=== PATIENT | female | born 1945 | race Caucasian/White ===

== ENCOUNTER 2025-02-12 09:44 | Day surgery (SDC) | payer MEDICARE, OTHER, SELFPAY ==
[2025-02-12] VITALS (12 sets, daily range): BP systolic 126–155; BP diastolic 61–108; BMI 25.5
[2025-02-12 10:55] LABS: Hematocrit 41.1 % (37.0-47.0); Hemoglobin 13.7 g/dL (12.0-16.0); Mean Corp Hgb Conc. 33.3 g/dL (33.0-37.0); Mean Corpuscular Hgb 30.4 pg (27.0-31.0); Mean Corpuscular Volume 91.1 fL (81.0-99.0); Mean Platelet Volume 9.6 fL (7.4-10.4); Platelet Count 328 10^3/uL (130-400); Red Blood Cell Count 4.51 10^6/uL (4.20-5.40); Red Cell Dist. Width 13.5 % (11.5-14.5); White Blood Cell Count 6.1 10^3/uL (4.8-10.8)
[2025-02-12 11:14] LABS: ALT (SGPT) 12 U/L (0-35); AST (SGOT) 16 U/L (14-36); Albumin 4.3 g/dl (3.5-5.0); Alkaline Phosphatase 46 U/L (38-126); Blood Urea Nitrogen 11 mg/dl (7-17); Calcium 8.3 mg/dl (8.4-10.2); Carbon Dioxide 34 mmol/L (22-30); Chloride 105 mmol/L (98-107); Estimated Creatinine Clearance 58 ml/min; Glucose 96 mg/dl (70-99); Potassium 4.2 mmol/L (3.5-5.1); Sodium 141 mmol/L (135-145); Total Bilirubin 0.7 mg/dl (0.2-1.3); Total Protein 6.5 g/dl (6.3-8.2); eGFR > 60.00
[2025-02-12] MEDS: LOW STRENGTH ASPIRIN 81 MG PO (11:15)
[2025-02-12] MEDS: NSS 205 ML IV (12:05)
--- NOTE | 2025-02-12 15:59 | ITS.CL.CATH ---
[employer] - Catheterization
Cardiac Catheterization
Procedure Report:
LEFT HEART CATHETERIZATION
Date of Procedure: February 12, 2025
Referring: Maite Hazel NP and Brandie Sterling MD
PROCEDURES:
1. Left heart catheterization, coronary angiogram.
2. Moderate sedation.
INDICATION: Abnormal stress test
ACCESS: Right radial artery, 6Fr. sheath, under US guidance.
HEMODYNAMICS : (mmHg)
AO (s/d) : 128/62
LVEDP : 13
No significant gradient across the aortic valve to suggest aortic stenosis.
CORONARY FINDINGS
Dominance: Right
Left Main Trunk (LMT): Large caliber vessel that gives rise to the LAD and LCx branches and is free of angiographic disease.
Left Anterior Descending Artery (LAD): Large caliber vessel that gives off 3 major diagonal branches as it courses along the anterior inter-ventricular groove before wrapping around the cardiac apex. LAD has mild diffuse atherosclerotic plaque.
There is a large septal branch in the mid LAD with ostial 80% stenosis all the septal branches provide robust [id number] collaterals..
Left Circumflex Artery (LCx): Large caliber vessel that gives off 1 major obtuse marginal (OM) branch as it courses along the atrio-ventricular (AV) groove. OM1 has diffuse 40 to 50% stenosis in the proximal portion with a focal area of aneurysmal
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
Right Coronary Artery (RCA): Large caliber dominant vessel that gives rise to the posterior descending artery (RPDA) and postero-lateral ventricular (RPLV) branches distally. Mid RCA has 100% chronic total occlusion with robust [id number]
collaterals.
SEDATION: 27 minutes of procedural sedation was utilized. IV Midazolam and IV Fentanyl were administered. An independent medical office specialist was present to assist with and help manage the patient's level of consciousness and physiologic status.
RADIATION SUMMARY: Fluoro Time (min): 3.0, Dose (mGy): 327.1, DAP (Gy.cm2) : 19.3
Closure Device: There were no immediate intra-procedural complications. 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
CONCLUSIONS
1. 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
2. Mild to moderate coronary artery disease otherwise.
3. Normal LVEDP.
RECOMMENDATIONS
1. Wean radial band per protocol. Monitor right hand perfusion and for bleeding from the radial site following removal of the vascular-band following trans-radial access.
2. Continue aggressive medical therapy and risk factor modification for secondary CAD prevention.
3. Hydrate with normal saline to mitigate the risk of contrast-induced acute kidney injury.
4. Follow-up with Dr. Brandie Sterling
Copy to: Maite Hazel NP and Brandie Sterling MD
Ana Arboleda MD, [facility], [facility]
--- NOTE | 2025-02-12 16:23 | DOWNTIME ---
There was a [employer] Client Elect Equip Maint Eng Downtime on 02/12/2025 from 1230 to 02/12/2025 at 1550. Downtime documentation of patient's care, including medication administrations, has been reconciled in the electronic record per guidelines. Refer to the
patient's paper chart under the miscellaneous tab to see printed paper medication records and downtime forms.
--- NOTE | 2025-02-12 16:24 | DOWNTIME ---
There was a [employer] Client Plastic Surgery Nurse Downtime on 02/12/2025 from 1230 to 02/12/2025 at 1550. Downtime documentation of patient's care, including medication administrations, has been reconciled in the electronic record per guidelines. Refer to the
patient's paper chart under the miscellaneous tab to see printed paper medication records and downtime forms.
== END 2025-02-12 16:30 | disposition home or self-care (01) ==
LOC: CATH 09:44
PROVIDERS: ATTENDING PHYSICIAN Internal Medicine Interventional Cardiology; FAMILY PHYSICIAN Internal Medicine; OTHER PHYSICIAN Internal Medicine Cardiovascular Disease
DX: I25.10 Atherosclerotic heart disease of native coronary artery without angina pectoris (principal); I25.82 Chronic total occlusion of coronary artery; I10 Essential (primary) hypertension; E03.9 Hypothyroidism, unspecified; Z79.899 Other long term (current) drug therapy; Z79.890 Hormone replacement therapy; Z79.82 Long term (current) use of aspirin; E78.5 Hyperlipidemia, unspecified; I65.29 Occlusion and stenosis of unspecified carotid artery; F17.210 Nicotine dependence, cigarettes, uncomplicated
CPT/HCPCS: 99152; 99153; 80053; 85027; 93005; 93458; C1894; Q9967